=== PATIENT | female | born 1930 | race Two or more races ===

== ENCOUNTER 2019-07-02 13:50 | Emergency (ER) | payer SELFPAY ==
[2019-07-02] MEDS ORDERED: Adacel (T-DAP) 0.5 ML SYRINGE ONE (14:09)
[2019-07-02] MEDS ORDERED: HYDROcodone/Acetaminophen 5/325 mg Tablet ONE (14:53)
--- NOTE | 2019-07-02 17:57 | RAD ---
LEFT SHOULDER THREE VIEWS: 07/02/19 Fractures of the proximal humerus are present. They involve at least the greater tubercle, and I am s uspicious that there may be a transverse fracture through the surgical neck. On the first film, the a kristal of the greater tubercle seems a bit more lucent than usual, but less so on the other studies. At this point, I am assuming the finding is merely that of fracture and not a pathological fracture. The AC joint is normal in width. There is no dislocation. The scapula appears intact. IMPRESSION: Proximal humeral fractures. See above. POS: HOME
== END 2019-07-02 15:03 | disposition home or self-care (01) ==
LOC: BURERS 13:50
DX: S42.202A Unspecified fracture of upper end of left humerus, initial encounter for closed fracture (principal); S61.011A Laceration without foreign body of right thumb without damage to nail, initial encounter; I10 Essential (primary) hypertension; F32.9 Major depressive disorder, single episode, unspecified; F17.210 Nicotine dependence, cigarettes, uncomplicated; Z79.899 Other long term (current) drug therapy; Z23 Encounter for immunization; W18.30XA Fall on same level, unspecified, initial encounter
CPT/HCPCS: 12001; 90471; 90715